=== PATIENT | male | born 1960 | race Caucasian/White ===

== ENCOUNTER 2023-06-03 02:13 | Inpatient (IN) | payer OTHER ==
[2023-06-03] MEDS ORDERED: Sodium Chloride 0.9% 1,000 ML IV STA (02:41)
[2023-06-03] MEDS ORDERED: Sodium Chloride 0.9% 10 ML Syringe FLUSH PRN ×2 (02:41→03:13)
[2023-06-03] MEDS ORDERED: Ondansetron 4 MG/2 ML SDV IVPUSH ONE (02:43)
[2023-06-03] MEDS ORDERED: fentaNYL 100 MCG/2 ML SDV IVPUSH ONE (02:43)
[2023-06-03] MEDS ORDERED: Sodium Chloride 0.9% 60 ML IV ONE (03:13)
[2023-06-03] MEDS ORDERED: Iopamidol 612 MG/ML 100 ML Bottle IV PRN (03:13)
[2023-06-03 03:23] LABS: BASOPHILS PERCENT AUTO 0.2 % (0.1-1.3); EOSINOPHILS PERCENT AUTO 0.1 % (0.0-5.4); HEMATOCRIT 45.1 % (38.4-49.7); HEMOGLOBIN 16.3 g/dL (12.9-16.9); IMMATURE GRAN ABSOLUTE AUTO 0.03 K/uL (0.00-0.23); IMMATURE GRAN PERCENT AUTO 0.3 % (0.0-0.7); LYMPHOCYTES ABSOLUTE AUTO 0.71 K/uL (0.8-3.3); LYMPHOCYTES PERCENT AUTO 7.9 % (11.4-47.7); MEAN CORPUSCULAR HEMOGLOBIN 30.4 pg (31.6-35.5); MEAN CORPUSCULAR HGB CONC 36.1 g/dL (31.6-35.5); MONOCYTES ABSOLUTE AUTO 0.46 K/uL (0.20-0.90); MONOCYTES PERCENT AUTO 5.1 % (3.3-12.6); NEUTROPHILS ABSOLUTE AUTO 7.81 K/uL (1.0-7.6); NEUTROPHILS PERCENT AUTO 86.4 % (40.0-78.1); PLATELET COUNT,PLT 172 K/uL (130-375); RED BLOOD CELL COUNT 5.37 M/uL (4.14-5.76)
[2023-06-03 03:24] LABS: BASOPHILS ABSOLUTE AUTO 0.02 K/uL (0.00-0.10); EOSINOPHILS ABSOLUTE AUTO 0.01 K/uL (0.00-0.40)
[2023-06-03] MEDS ORDERED: HYDROmorphone 1 MG/ML Syringe IVPUSH ONE (03:39)
[2023-06-03 03:50] LABS: ALANINE AMINOTRANSFERASE,ALT 41 U/L (12-78); ALBUMIN 3.6 g/dL (3.4-5.0); ALKALINE PHOSPHATASE 69 U/L (46-116); ANION GAP 14.5 mmol/L (5.0-14.0); ASPARTATE AMNIOTRANSFERASE,AST 29 U/L (15-37); BLOOD UREA NITROGEN,BUN 20 mg/dL (7-18); CALCIUM 8.7 mg/dL (8.5-10.1); CARBON DIOXIDE,CO2 23 mmol/L (21-32); CHLORIDE,CL 99 mmol/L (100-108); CREATININE 1.2 mg/dL (0.8-1.3); EST CRCL DRUG DOSING (CG) 57.38 mL/min; ESTIMATED GFR 67 mL/min (>60); GLUCOSE RANDOM 156 mg/dL (74-106); POTASSIUM,K 4.5 mmol/L (3.6-5.2); PROTEIN TOTAL,TP 7.3 g/dL (6.4-8.2); SODIUM,NA 132 mmol/L (140-148)
[2023-06-03 05:15] LABS: CORONAVIRUS COVID-19 NAA NEGATIVE (NEGATIVE); INFLUENZA A NAA NEGATIVE (NEGATIVE); INFLUENZA B NAA NEGATIVE (NEGATIVE); RESPIRATORY SYNCYTIAL VIR NAA NEGATIVE (NEGATIVE)
[2023-06-03] MEDS ORDERED: Ondansetron 4 MG/2 ML SDV IV PRN ×2 (05:26→12:08)
[2023-06-03] MEDS ORDERED: Ondansetron 4 MG Tab.DIS PO PRN ×2 (05:26→12:08)
[2023-06-03] MEDS ORDERED: Melatonin 3 MG Tab PO PRN (05:26)
[2023-06-03] MEDS ORDERED: Sodium Chloride 0.9% 1,000 ML IV SCH (05:30)
[2023-06-03] MEDS: HYDROmorphone 0.5 MG/0.5 ML Syringe IVPUSH PRN ×4 (07:20→21:44)
[2023-06-03] MEDS: Pantoprazole 40 MG Tab.CR PO SCH (07:27)
[2023-06-03] MEDS: Metoprolol Tartrate 25 MG Tab PO SCH ×2 (09:41→21:07)
[2023-06-03] MEDS: Enoxaparin 40 MG/0.4 ML Syringe SUBCUT SCH (11:45)
[2023-06-04] MEDS: Acetaminophen 325 MG Tab PO PRN ×2 (05:20→09:19)
[2023-06-04 05:39] LABS: HEMATOCRIT 43.6 % (38.4-49.7); HEMOGLOBIN 15.4 g/dL (12.9-16.9); MEAN CORPUSCULAR HEMOGLOBIN 30.7 pg (31.6-35.5); MEAN CORPUSCULAR HGB CONC 35.3 g/dL (31.6-35.5); MEAN CORPUSCULAR VOLUME 86.9 fL (81.4-99.0); RED BLOOD CELL COUNT 5.02 M/uL (4.14-5.76); WHITE BLOOD CELL COUNT,WBC 11.8 K/uL (3.2-11.0)
[2023-06-04 06:05] LABS: A/G RATIO 0.9 (1.2-2.2); ALBUMIN 3.4 g/dL (3.4-5.0); BILIRUBIN DIRECT 0.33 mg/dL (0.0-0.2); BILIRUBIN INDIRECT 1.47; BILIRUBIN TOTAL 1.8 mg/dL (0.2-1.0); CALCIUM 8.5 mg/dL (8.5-10.1); CREATININE 1.2 mg/dL (0.8-1.3); EST CRCL DRUG DOSING (CG) 57.38 mL/min; MAGNESIUM 1.8 mg/dL (1.8-2.4); POTASSIUM,K 3.9 mmol/L (3.6-5.2)
[2023-06-04 06:12] LABS: ANION GAP 7.9 mmol/L (5.0-14.0)
[2023-06-04] MEDS: Pantoprazole 40 MG Tab.CR PO SCH (07:23)
[2023-06-04] MEDS: Metoprolol Tartrate 25 MG Tab PO SCH (08:35)
[2023-06-04] MEDS: Enoxaparin 40 MG/0.4 ML Syringe SUBCUT SCH (08:36)
[2023-06-04] MEDS ORDERED: Aspirin 325 MG Tab.EC PO ONE (09:43)
== END 2023-06-04 12:05 | disposition home or self-care (01) | DRG 440 ==
LOC: JP.ED 02:13 → JP.MS 05:14
PROVIDERS: ADMIT Registered Nurse; ATTEND Hospitalist
DX: K85.90 Acute pancreatitis without necrosis or infection, unspecified (principal); R09.02 Hypoxemia; E86.0 Dehydration; G47.30 Sleep apnea, unspecified; I49.9 Cardiac arrhythmia, unspecified; E78.00 Pure hypercholesterolemia, unspecified; K21.9 Gastro-esophageal reflux disease without esophagitis; Z11.52 Encounter for screening for COVID-19; Z79.899 Other long term (current) drug therapy
CPT/HCPCS: 0241U; 36415; 74177; 80048; 80053; 80076; 83605; 83690; 83735; 85025; 85027; 96361; 96374; 96375; 99222; 99238; 99285-25; A9270-GY; J1170; J1650; J2405; J3010; J3490; J7030; Q0162; Q9967

== ENCOUNTER 2023-06-26 12:37 | Emergency (ER) | payer OTHER ==
[2023-06-26 14:11] LABS: BASOPHILS ABSOLUTE AUTO 0.01 K/uL (0.00-0.10); BASOPHILS PERCENT AUTO 0.1 % (0.1-1.3); EOSINOPHILS ABSOLUTE AUTO 0.01 K/uL (0.00-0.40); EOSINOPHILS PERCENT AUTO 0.1 % (0.0-5.4); HEMATOCRIT 38.7 % (38.4-49.7); HEMOGLOBIN 13.9 g/dL (12.9-16.9); IMMATURE GRAN ABSOLUTE AUTO 0.07 K/uL (0.00-0.23); IMMATURE GRAN PERCENT AUTO 0.6 % (0.0-0.7); LYMPHOCYTES ABSOLUTE AUTO 0.41 K/uL (0.8-3.3); LYMPHOCYTES PERCENT AUTO 3.4 % (11.4-47.7); MEAN CORPUSCULAR HEMOGLOBIN 29.9 pg (31.6-35.5); MEAN CORPUSCULAR HGB CONC 35.9 g/dL (31.6-35.5); MEAN CORPUSCULAR VOLUME 83.2 fL (81.4-99.0); MONOCYTES ABSOLUTE AUTO 0.28 K/uL (0.20-0.90); MONOCYTES PERCENT AUTO 2.3 % (3.3-12.6); NEUTROPHILS ABSOLUTE AUTO 11.14 K/uL (1.0-7.6); NEUTROPHILS PERCENT AUTO 93.5 % (40.0-78.1); PLATELET COUNT,PLT 76 K/uL (130-375); RED BLOOD CELL COUNT 4.65 M/uL (4.14-5.76); WHITE BLOOD CELL COUNT,WBC 11.9 K/uL (3.2-11.0)
[2023-06-26 14:33] LABS: BASE EXCESS VENOUS 1.1 mm/L; BICARBONATE,VENOUS 25.2 mmol/L; CARBOXYHEMOGLOBIN 1.2 % (0.0-1.6); O2 SATURATION VENOUS 22.2; OXYHEMOGLOBIN 21.7 %; PCO2 VENOUS 40.2 mm/Hg; PH,VENOUS 7.414 (7.350-7.450); TOTAL HEMOGLOBIN 14.2 g/dL (13.5-18.0)
[2023-06-26 14:35] LABS: PO2 VENOUS 16.4 mm/Hg
[2023-06-26 14:42] LABS: A/G RATIO 0.5 (1.2-2.2); ALANINE AMINOTRANSFERASE,ALT 101 U/L (12-78); ALBUMIN 2.4 g/dL (3.4-5.0); ALKALINE PHOSPHATASE 98 U/L (46-116); ASPARTATE AMNIOTRANSFERASE,AST 90 U/L (15-37); BILIRUBIN TOTAL 1.1 mg/dL (0.2-1.0); BLOOD UREA NITROGEN,BUN 28 mg/dL (7-18); C-REACTIVE PROTEIN 21.76 mg/dL (<0.50); CALCIUM 8.5 mg/dL (8.5-10.1); CARBON DIOXIDE,CO2 23 mmol/L (21-32); CHLORIDE,CL 98 mmol/L (100-108); CREATININE 1.8 mg/dL (0.8-1.3); EST CRCL DRUG DOSING (CG) 38.25 mL/min; ESTIMATED GFR 41 mL/min (>60); GLUCOSE RANDOM 161 mg/dL (74-106); POTASSIUM,K 3.6 mmol/L (3.6-5.2); PROTEIN TOTAL,TP 7.2 g/dL (6.4-8.2); SODIUM,NA 131 mmol/L (140-148)
[2023-06-26 14:43] LABS: ANION GAP 13.6 mmol/L (5.0-14.0)
[2023-06-26] MEDS: Sodium Chloride 0.9% 75 ML IV ONE (14:45)
[2023-06-26] MEDS: Sodium Chloride 0.9% 10 ML Syringe FLUSH PRN (14:45)
[2023-06-26] MEDS: Iopamidol 612 MG/ML 100 ML Bottle IV PRN (14:45)
[2023-06-26] MEDS: Sodium Chloride 0.9% 1,000 ML IV ONE (15:04)
[2023-06-26 15:40] LABS: CORONAVIRUS COVID-19 NAA NEGATIVE (NEGATIVE); INFLUENZA A NAA NEGATIVE (NEGATIVE); INFLUENZA B NAA NEGATIVE (NEGATIVE); RESPIRATORY SYNCYTIAL VIR NAA NEGATIVE (NEGATIVE)
== END 2023-06-26 18:45 | disposition home or self-care (01) ==
LOC: JP.ED 12:37
DX: E86.0 Dehydration (principal); N17.9 Acute kidney failure, unspecified; K21.9 Gastro-esophageal reflux disease without esophagitis; Z86.16 Personal history of COVID-19; Z79.899 Other long term (current) drug therapy
CPT/HCPCS: 0241U; 36415; 70450; 71260; 74177; 80053; 82140; 82803; 83605; 83690; 84443; 84484; 85025; 86140; 93005; 96360; 99285; J3490; J7030; Q9967; 99284